=== PATIENT | female | born 1995 | race Hispanic/Latino ===

== ENCOUNTER 2016-11-20 17:16 | Emergency (ER) | payer OTHER ==
[~2016-11-20] VITALS: Ht 167.6 cm; Wt 63.5 kg
[2016-11-20] MEDS ORDERED: CETI10TA20 PO (17:24)
[2016-11-20] MEDS ORDERED: CYCL5TAB PO (17:39)
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
[2016-11-20 18:26] VITALS: BP 121/75
--- OUTSIDE RECORDS SUMMARY | 2016-11-24 08:10 | XMS REPORT | Clinical Summary ---
Author Author Admin, TYLER Organization [facility] Address Unknown Phone Unavailable Allergies, Adverse Reactions, Alerts Allergy Name Reaction Description Start Date Severity Status Provider No Known Allergies Alicia Galo MA Conditions or Problems Problem Name Problem Code Onset Date Status Entry Date Provider Comment Standard Description Annotate Hand injury 959.4 Active Vikas Mendiola MD Other and unspecified injury to hand, except finger Wrist sprain, left 842.00 Active Vikas Mendiola MD Sprain of unspecified site of wrist Contraceptive management V25.09 Active Teddy Miller DO Encounter for other general counseling and advice on contraceptive management Medication List Medication Instructions Start Date Stop Date Generic Name NDC Status Provider Patient Instruction No Drug Therapy Prescribed - none known did ask Alicia Galo MA Immunizations Vaccine Administration Date Value Standard Description Seasonal influenza vaccine, injectable, containing preservative, for 6 - 35 months old (Afluria, FluLaval, Fluzone, Fluvirin, Fluarix) Fluzone (6-35 mo.) [[id number]] Influenza, seasonal, injectable Seasonal influenza vaccine, injectable, containing preservative, for > 3 years old (Afluria, FluLaval, Fluzone, Fluvirin, Fluarix, Agriflu(>=18 yo)) Fluzone (>3 yrs.) [[id number]] Influenza, seasonal, injectable Vital Signs Date Name Value Unit Range Description blood pressure, diastolic - 8462-4 79 mm[Hg] BP vazquez blood pressure, systolic - 8480-6 114 mm[Hg] BP sys pulse rate E&M - 8867-4 71 /min Heart rate temperature E&M 97.3 [degF] Body temperature weight E&M - 3141-9 124.4 [lb_av] Weight Measured blood pressure, diastolic - 8462-4 70 mm[Hg] BP vazquez blood pressure, systolic - 8480-6 101 mm[Hg] BP sys height E&M - 8302-2 66 [in_us] Bdy height pulse rate E&M - 8867-4 77 /min Heart rate temperature E&M 98.5 [degF] Body temperature weight E&M - 3141-9 125.50 [lb_av] Weight Measured Diagnostic Results Date Name Value Unit Range Description Lab Report: [facility] [place] - Chemistry human chorionic gonadotropin, urine, qualitative (urine test) Negative Negative Encounters Code Encounter Date Provider Facility CPT-83143 Level 3 Est. Patient 16:50:02 CDT Vikas Mendiola MD [facility] Procedures Code Procedure Name Date Entry Date Standard Description CPT-75721 Nexplanon Placement 09:38:47 CDT CPT-92448 Fluzone Quadrivalent Intramuscular Suspension 0.5 ML 11: 23:45 CDT CPT-22846 Wrist comp 3V 16:33:28 CDT CPT-80590 Hand comp min 3V 16:33:28 CDT CPT-36036 Administration single or combination vaccine inc oral 18 :21:53 CDT CPT-53807 Influenza split virus > age 3 18:21:53 CDT CPT-95130 Administration single or combination vaccine inc oral 17 :02:23 CDT CPT-51866 Influenza split virus > age 3 17:02:23 CDT
--- OUTSIDE RECORDS SUMMARY | 2016-11-24 08:10 | XMS REPORT | Clinical Summary ---
Author Author Admin, TYLER Organization [facility] Address Unknown Phone Unavailable Allergies, Adverse Reactions, [...] FluLaval, Fluzone, Fluvirin, Fluarix) Fluzone (6-35 mo.) [[id number]] Influenza, seasonal, injectable Seasonal influenza vaccine, injectable, containing preservative, for > 3 years old (Afluria, FluLaval, Fluzone, Fluvirin, Fluarix, Agriflu(>=18 yo)) Fluzone (>3 yrs.) [[id number]] Influenza, seasonal, injectable Vital Signs Date Name [...] E&M - 3141-9 125.50 [lb_av] Weight Measured Encounters Code Encounter Date Provider Facility CPT-12359 Level 3 Est. Patient 16:50:02 CDT Vikas Mendiola MD [facility] Procedures Code Procedure Name Date Entry Date Standard Description CPT-65376 Nexplanon Placement 09:38:47 CDT CPT-33246 Fluzone Quadrivalent Intramuscular Suspension 0.5 ML 11: 23:45 CDT CPT-02362 Wrist comp 3V 16:33:28 CDT CPT-10144 Hand comp min 3V 16:33:28 CDT CPT-69440 Administration single or combination vaccine inc oral 18 :21:53 CDT CPT-16180 Influenza split virus > age 3 18:21:53 CDT CPT-67617 Administration single or combination vaccine inc oral 17 :02:23 CDT CPT-01579 Influenza split virus > age 3 17:02:23 CDT
--- OUTSIDE RECORDS SUMMARY | 2016-11-24 08:10 | XMS REPORT | Clinical Summary ---
Author Author Admin, TYLER Organization [facility] Address Unknown Phone Unavailable Allergies, Adverse [...] FluLaval, Fluzone, Fluvirin, Fluarix) Fluzone (6-35 mo.) [[id number]] Influenza, seasonal, injectable Seasonal influenza vaccine, injectable, containing preservative, for > 3 years old (Afluria, FluLaval, Fluzone, Fluvirin, Fluarix, Agriflu(>=18 yo)) Fluzone (>3 yrs.) [[id number]] Influenza, seasonal, injectable Vital Signs Date Name [...] Name Value Unit Range Description Lab Report: [facility] [place] Chemistry human chorionic gonadotropin, urine, qualitative (urine test) Negative Negative Encounters Code Encounter Date Provider Facility CPT-21998 Level 3 Est. Patient 16:50:02 CDT Vikas Mendiola MD [facility] Procedures Code Procedure Name Date Entry Date Standard Description CPT-24825 Nexplanon Placement 09:38:47 CDT CPT-61380 Fluzone Quadrivalent Intramuscular Suspension 0.5 ML 11: 23:45 CDT CPT-92649 Wrist comp 3V 16:33:28 CDT CPT-81900 Hand comp min 3V 16:33:28 CDT CPT-02802 Administration single or combination vaccine inc oral 18 :21:53 CDT CPT-34628 Influenza split virus > age 3 18:21:53 CDT CPT-99471 Administration single or combination vaccine inc oral 17 :02:23 CDT CPT-93627 Influenza split virus > age 3 17:02:23 CDT
== END 2016-11-20 18:26 | disposition home or self-care (01) ==
LOC: ER 17:17
DX: S16.1XXA Strain of muscle, fascia and tendon at neck level, initial encounter (principal); V49.40XA Driver injured in collision with unspecified motor vehicles in traffic accident, initial encounter
CPT/HCPCS: 72125; 99283